=== PATIENT | female | born 1945 | race Caucasian/White ===

== ENCOUNTER → 2016-09-27 | Outpatient (CLI) | payer MEDICARE ==
--- NOTE | 2016-09-27 08:33 | MR ---
EXAMINATION TYPE: MR knee RT wo con DATE OF EXAM: 09/27/2016 8:09 AM COMPARISON: Outside right knee x-ray September 08, 2016. HISTORY: Right knee pain per order. Pain since twisting injury August 11, 2016 per patient. TECHNIQUE: Multiplanar, multisequence images of the knee is performed without IV contrast. FINDINGS: MEDIAL MENISCUS: Anterior horn is intact without tear. Posterior horn is emaciated with abnormal sign al extending to articular surface seen best sagittal image 9, findings are consistent with complex fu ll-thickness tear. LATERAL MENISCUS: Anterior and posterior horns are intact without tear. CRUCIATE LIGAMENTS: The anterior and posterior cruciate ligaments are intact and unremarkable. COLLATERAL LIGAMENTS: The medial collateral ligament and lateral collateral ligament complex are inta ct. Some mild fluid signal surrounds medial collateral ligament. EXTENSOR MECHANISM: Visualized quadriceps and patellar tendons are intact. EFFUSION: There is moderate to large size suprapatellar joint effusion. POPLITEAL CYST: There is moderate to large size popliteal/ireland cyst measuring 8.2 cm on sagittal cassidy ge 7. TRICOMPARTMENT SPACES: There is mild to moderate tricompartment joint space loss and spurring. CARTILAGE: There is chondromalacia patella with near full-thickness cartilaginous loss over the poste rior patellar pole identified. There is cartilaginous thinning also on the lateral and medial tibiofe moral compartments with some fissuring present. BONE MARROW SIGNAL: There is heterogeneous increased T2 signal involving the medial tibial plateau wi thout distinct linear T1 hypointense signal to suggest radio occult fracture. OTHER: No additional significant abnormality is appreciated. IMPRESSION: 1. Complex full-thickness tear posterior horn of medial meniscus. 2. Significant osseous contusion/bone marrow edema involving the medial tibial meta-epiphysis up to t he articular surface. 3. Mild MCL sprain. 4. Moderate to large suprapatellar joint effusion. 5. Moderate to large size popliteal cyst. 6. Background of moderate osteoarthritic changes with full-thickness chondromalacia patella and near full-thickness tibial femoral cartilaginous loss.
== END | disposition home or self-care (01) ==
LOC: RADMRIMAIN 07:33
PROVIDERS: ATTEND Orthopaedic Surgery
DX: S83.231A Complex tear of medial meniscus, current injury, right knee, initial encounter (principal); S83.411A Sprain of medial collateral ligament of right knee, initial encounter; M71.21 Synovial cyst of popliteal space [Baker], right knee; M17.11 Unilateral primary osteoarthritis, right knee; M22.41 Chondromalacia patellae, right knee

== ENCOUNTER 2016-10-31 07:23 | Day surgery (SDC) | payer MEDICARE ==
[2016-10-29 13:12] VITALS: BMI 31.1
--- NOTE | 2016-10-30 15:25 | HP ---
DATE OF ADMISSION: 10/31/2016 Ilene Palma is a 71-year-old patient seen with progressive right knee pain. After having treatment options discussed, she elected to proceed with right knee arthroscopy. Consent was obtained. Medical clearance provided by Dr. Lucia. Past medical history is hypertension, osteoarthritis. PAST SURGICAL HISTORY: Appendectomy, section, knee arthroscopy, breast biopsy, tonsillectomy. DAILY MEDICATIONS: 1. Aspirin. 2. Lisinopril. 3. Aleve. 4. Tramadol. ALLERGIES: PENICILLIN and SULFA. SOCIAL HISTORY: Patient denies current tobacco use. Physical evaluation of the right knee: Range of motion is 0 to 120 degrees. There is tenderness along the medial joint line. Positive medial Nancie's. Ligaments are stable. Hip rotation is without pain. Distal neurovascular exam is intact. Radiographs of the right knee revealed moderate medial compartment osteoarthritis. MRI of the right knee revealed medial meniscal tear as well as a joint effusion. IMPRESSION: Internal derangement of right knee with medial meniscal tear. PLAN: Right knee arthroscopy with partial meniscectomy and debridement.
[~2016-10-31 07:23] MED LIST: DEXAMETHASONE SOD PHOSPHATE 10 MG/ML 1 ML VIAL IV ONE; HYDROmorphone 1 MG/ML 1 ML SYRINGE IVP PRN; LACTATED RINGERS 1,000 ML IV SCH; LIDOCAINE 1% 20 ML VIAL (10MG/ML) FOR IV START INTRADERMA PRN; MIDAZOLAM 2 MG/2 ML VIAL IV PRN; ONDANSETRON 4 MG/2 ML VIAL IVP ONE; SCOPOLAMINE 1.5MG/72HR PATCH TRANSDERM ONE; ceFAZolin 2 GM in SODIUM CHLORIDE 0.9% 100 ML IVPB ONE
[2016-10-31 07:52] VITALS: RESP 16
[2016-10-31] MEDS ORDERED: LIDOCAINE 1% 20 ML VIAL (10MG/ML) FOR IV START INTRADERMA ONE (07:52)
[2016-10-31] MEDS ORDERED: PROPOFOL 10 MG/ML 20 ML VIAL IV ONE (08:36)
[2016-10-31] MEDS ORDERED: BUPIVACAIN-EPI 0.25%-1:200,000 30 ML VIAL INTRAARTIC ONE (08:36)
[2016-10-31] MEDS ORDERED: LIDOCAINE 1% INJ 10MG/ML (20 ML MDV) ONE (08:36)
[2016-10-31] MEDS ORDERED: MIDAZOLAM 2 MG/2 ML VIAL ONE (08:36)
[2016-10-31] MEDS ORDERED: fentaNYL (PF) 50 MCG/ML 2 ML AMP ONE (08:36)
[2016-10-31] MEDS ORDERED: SUCCINYLCHOLINE CHLORIDE 100 MG/5 ML SYR IV ONE (08:36)
[2016-10-31] MEDS ORDERED: ePHEDrine 50 MG/ML 1 ML AMP ONE (08:36)
[2016-10-31 09:37] VITALS: TEMP 96.8
--- NOTE | 2016-10-31 09:38 | P.OP ---
Date of Procedure: 10/31/16 Preoperative Diagnosis: Internal derangement right knee Postoperative Diagnosis: 1. Tear medial and lateral meniscus right knee 2. Grade 3/4 chondromalacia medial femoral condyle right knee 3. Grade 3/4 chondromalacia lateral femoral condyle right knee 4. Reactive synovitis medial and suprapatellar compartments right knee Procedure(s) Performed: 1. Arthroscopic partial medial and lateral meniscectomy right knee 2. Arthroscopic chondroplasty medial femoral condyle right knee 3. Arthroscopic chondroplasty lateral femoral condyle right knee 4. Arthroscopic partial synovectomy medial and suprapatellar compartments right knee Anesthesia: ADAMA, local Surgeon: [facility] Estimated Blood Loss (ml): 10 Pathology: none sent Condition: stable Disposition: PACU Indications for Procedure: 71-year-old patient seen with progressive right knee pain. After having treatment options discussed, she elected to proceed with right knee arthroscopy. Operative Findings: See description of procedure Description of Procedure: Patient was taken to the operative suite. Patient underwent a general anesthetic by the department of anesthesia. Patient was given preoperative antibiotics. The right lower extremity was placed in a well-padded arthroscopic leg ferrer. The right leg was prepped and draped in the normal sterile orthopedic fashion. A lateral parapatellar and suprapatellar incision was made. Trochars were inserted. Arthroscopy was initiated. Suprapatellar pouch revealed thick reactive synovitis. The patellofemoral joint appeared to articulate congruently. There was grade 2 chondromalacia changes of the patellofemoral joint with no osteochondral tears present. The scope was guided into the medial gutter. No loose bodies or plica was identified. The scope was then guided into the medial compartment. A medial parapatellar incision was made. Trocar inserted followed by probe. There was a complex tear involving the posterior horn medial meniscus. Grade 3-4 chondromalacia changes medial femoral condyle with areas of exposed bone. Reactive synovitis anteriorly. Grade 3 chondromalacia of the tibial plateau. No loose bodies. A partial medial meniscectomy was performed down to stable tissue. I performed a chondroplasty of the medial femoral condyle and partial synovectomy. The residual meniscus was probed and found to be stable. Scope and probe were then guided into the intercondylar notch. Cruciates were identified, probed and found to be stable. The scope and probe were then guided into lateral compartment. Radial tears involving the posterior horn and midbody lateral meniscus. There was a weight-bearing central area of grade 3/4 chondromalacia of the lateral femoral condyle with osteochondral tears. No loose bodies. A partial lateral meniscectomy was performed on a stable tissue. I performed a chondroplasty lateral femoral condyle. The residual meniscus and osteochondral surface were found to be stable. The scope was in guided back into the suprapatellar compartment. A motorized shaver was introduced into the suprapatellar compartment debriding out piecemeal fragments of meniscus, I then performed a partial synovectomy. Shaver was removed. I took one more look on the entire knee, no residual debris. Instruments were now removed from the joint. The joint was infiltrated with .25% Marcaine. Steri-Strips were applied to the portal sites. Sterile dressings were applied. The patient was placed into a ILIANA hose. No tourniquet was utilized. The patient was awakened, transferred to a bed and taken to recovery stable satisfactory condition.
[2016-10-31 10:47] VITALS: BP 133/79; PULSE 103
== END 2016-10-31 11:15 | disposition home or self-care (01) ==
LOC: OR 07:23
PROVIDERS: ATTEND Orthopaedic Surgery
DX: S83.241A Other tear of medial meniscus, current injury, right knee, initial encounter (principal); S83.281A Other tear of lateral meniscus, current injury, right knee, initial encounter; X58.XXXA Exposure to other specified factors, initial encounter; M94.261 Chondromalacia, right knee; M65.861 Other synovitis and tenosynovitis, right lower leg; M19.90 Unspecified osteoarthritis, unspecified site; I10 Essential (primary) hypertension; Z87.891 Personal history of nicotine dependence; F41.9 Anxiety disorder, unspecified; Z79.82 Long term (current) use of aspirin; Z79.1 Long term (current) use of non-steroidal anti-inflammatories (NSAID); Z79.891 Long term (current) use of opiate analgesic; Z79.899 Other long term (current) drug therapy; Z88.0 Allergy status to penicillin; Z88.2 Allergy status to sulfonamides
CPT/HCPCS: 29880; J2250; J1100; J0690; J2405; J2001; J3010; J0330; J2704

== ENCOUNTER → 2017-04-17 | Outpatient (CLI) | payer MEDICARE ==
--- NOTE | 2017-04-17 13:24 | MM ---
Reason for exam: screening (asymptomatic). Last mammogram was performed 1 year ago. History: Patient is postmenopausal. Benign excisional biopsy of the right breast. Took estrogen for 6 years beginning at age 50. Physical Findings: A clinical breast exam by your physician is recommended on an annual basis and results should be correlated with mammographic findings. MG 3D Screening Mammo W/Cad Bilateral CC and MLO view(s) were taken. Prior study comparison: April 11, 2016, bilateral MG 3d screening mammo w/cad. June 03, 2012, bilateral digital screening mammo w/CAD. There are scattered fibroglandular densities. Finding: There are typically benign vascular calcifications in both breasts. There is no discrete abnormality. ASSESSMENT: Benign, BI-RAD 2 RECOMMENDATION: Routine screening mammogram of both breasts in 1 year.
== END | disposition home or self-care (01) ==
LOC: RADMAMWWP 07:50
PROVIDERS: ATTEND Family Medicine
DX: Z12.31 Encounter for screening mammogram for malignant neoplasm of breast (principal)
CPT/HCPCS: 77063; G0202

== ENCOUNTER → 2017-09-15 | Outpatient (CLI) | payer MEDICARE ==
--- NOTE | 2017-09-15 15:22 | XR ---
EXAMINATION TYPE: XR abdomen 2V DATE OF EXAM: 09/15/2017 3:14 PM CLINICAL HISTORY: Lower abdominal pain and constipation for 2 weeks TECHNIQUE: Upright and supine image of the abdomen is obtained. COMPARISON: None. FINDINGS: Scattered gas is seen in non-distended small bowel loops. Gas and fecal material is seen in non-distended colon. There is no visceromegaly, pneumoperitoneum, or abnormal calcification apprecia jono. The lung bases are clear and the osseous structures are intact. S-shaped rotatory scoliotic curv ature of the thoracolumbar spine and moderate multilevel degenerative changes are seen. Moderate dege nerative changes of the left femoral acetabular joints are also noted. IMPRESSION: Nonobstructive bowel gas pattern.
== END | disposition home or self-care (01) ==
LOC: RADXRYALE 15:02
PROVIDERS: ATTEND Physician Assistant Medical
DX: R10.817 Generalized abdominal tenderness (principal)
CPT/HCPCS: 74019

== ENCOUNTER 2019-02-04 12:35 | Observation (INO) | payer MEDICARE ==
[2019-02-04] MEDS ORDERED: NITROGLYCERIN SL TABS 0.4 MG TAB SUBLINGUAL STA ×3 (13:34)
--- NOTE | 2019-02-04 13:39 | ED ---
General Adult HPI - General Chief complaint: Chest Pain Stated complaint: chest pain Time Seen by Provider: 02/04/19 13:11 Source: patient, RN notes reviewed Mode of arrival: wheelchair Limitations: no limitations - History of Present Illness Initial comments: Patient is a pleasant 73-year-old female presenting to the emergency department with complaints of upper back discomfort. Onset of symptoms was around 8 AM. Patient was arty awake. Patient saw her doctor today and was advised to come to emergency department for cardiac workup. Discomfort is near resolved at this point. Discomfort has been waxing and waning. At times discomfort is moderate, 6/10. No associated dyspnea, nausea, or diaphoresis. No discomfort in the chest. Discomfort starts in the upper back and radiates to both arms. No weakness. Discomfort is not positional. Patient states her blood pressure was high earlier and was given Catapres at her physician's office. Patient also adds that 2 days ago she had an episode of expressive aphasia the last around 20 minutes and then resolved. No other areas of weakness or confusion. Patient states she could just did not think of words or state them. - Related Data Home Medications Medication Instructions Recorded Confirmed Aspirin 81 mg PO DAILY 10/29/16 02/04/19 Calcium Carbonate/Vitamin D3 2,000 mg PO DAILY 10/29/16 02/04/19 [Calcium 500-Vit D3 600 Tablet] Niacin 1,000 mg PO DAILY 10/29/16 02/04/19 Red Yeast Rice 600 mg PO DAILY 10/29/16 02/04/19 Lisinopril 20 mg PO DAILY 02/04/19 02/04/19 Sucralfate [Carafate] 1 gm PO AC-TID 02/04/19 02/04/19 traMADol HCL [Ultram] 50 mg PO DAILY PRN 02/04/19 02/04/19 Allergies Allergy/AdvReac Type Severity Reaction Status Date / Time Penicillins Allergy Rash/Hives Verified 02/04/19 13:22 Review of Systems ROS Statement: Those systems with pertinent positive or pertinent negative responses have been documented in the HPI. ROS Other: All systems not noted in ROS Statement are negative. Constitutional: Denies: fever Eyes: Denies: eye pain ENT: Denies: ear pain Respiratory: Denies: cough Cardiovascular: Reports: as per HPI. Denies: chest pain Endocrine: Reports: fatigue Gastrointestinal: Denies: abdominal pain, nausea, vomiting Genitourinary: Denies: dysuria Musculoskeletal: Reports: as per HPI Skin: Denies: rash Neurological: Reports: as per HPI. Denies: weakness Past Medical History Past Medical History: Hyperlipidemia, Hypertension, Osteoarthritis (OA) Additional Past Medical History / Comment(s): rt torn meniscus History of Any Multi-Drug Resistant Organisms: None Reported Past Surgical History: Appendectomy, Section Additional Past Surgical History / Comment(s): c sect x2,cyst removed from breast,rt hip replaced,pilondal cyst rem.,arth rt knee Past Anesthesia/Blood Transfusion Reactions: No Reported Reaction Past Psychological History: No Psychological Hx Reported Smoking Status: Former smoker - Past Family History Mother Additional Family Medical History / Comment(s): heart prob Father Additional Family Medical History / Comment(s): heart prob Sister(s) Family Medical History: Cancer General Exam Limitations: no limitations General appearance: alert, in no apparent distress Head exam: Present: atraumatic, normocephalic Eye exam: Present: normal appearance, PERRL, EOMI. Absent: nystagmus ENT exam: Present: normal oropharynx Neck exam: Present: normal inspection. Absent: tenderness Respiratory exam: Present: normal lung sounds bilaterally. Absent: chest wall tenderness Cardiovascular Exam: Present: normal rhythm, tachycardia Expanded Peripheral pulses: 2+: Radial (R), Radial (L), Dorsalis Pedis (R), Dorsalis P merari (L) GI/Abdominal exam: Present: soft. Absent: tenderness Extremities exam: Present: normal inspection. Absent: pedal edema, calf tenderness Back exam: Present: normal inspection. Absent: tenderness Neurological exam: Present: alert Psychiatric exam: Present: normal affect, normal mood Skin exam: Present: normal color Course Vital Signs 02/04/19 02/04/19 02/04/19 13:07 14:30 15:30 Temperature 99.2 F Pulse Rate 117 H 110 H 104 H Respiratory 18 18 18 Rate Blood Pressure 146/86 139/88 132/82 O2 Sat by Pulse 95 97 95 Oximetry 02/04/19 16:00 Temperature 99.0 F Pulse Rate 114 H Respiratory 20 Rate Blood Pressure O2 Sat by Pulse 97 Oximetry EKG Findings - EKG Comments: EKG Findings:: Sinus tachycardia 114. OH 158. QRS 78. QT 328. QTC 452. Inferior Q waves. Nonspecific T waves. Medical Decision Making - Medical Decision Making Patient reevaluated. Patient and family updated. Case was discussed in detail with Dr. Post, who will admit for Dr. Mir Vences. - Lab Data Result diagrams: 02/04/19 13:30 02/04/19 13:30 Lab Results 02/04/19 02/04/19 02/04/19 Range/Units 13:30 13:30 13:30 WBC 7.8 (3.8-10.6) k/uL RBC 4.67 (3.80-5.40) m/uL Hgb 13.5 (11.4-16.0) gm/dL Hct 42.3 (34.0-46.0) % MCV 90.6 (80.0-100.0) fL MCH 29.0 (25.0-35.0) pg MCHC 32.0 (31.0-37.0) g/dL RDW 14.4 (11.5-15.5) % Plt Count 298 (150-450) k/uL Neutrophils % 75 % Lymphocytes % 19 % Monocytes % 4 % Eosinophils % 1 % Basophils % 0 % Neutrophils # 5.8 (1.3-7.7) k/uL Lymphocytes # 1.5 (1.0-4.8) k/uL Monocytes # 0.3 (0-1.0) k/uL Eosinophils # 0.1 (0-0.7) k/uL Basophils # 0.0 (0-0.2) k/uL PT 9.9 (9.0-12.0) sec INR 0.9 (<1.2) APTT 22.0 (22.0-30.0) sec D-Dimer 0.90 H (<0.60) mg/L FEU Sodium 137 (137-145) mmol/L Potassium 4.5 (3.5-5.1) mmol/L Chloride 102 (98-107) mmol/L Carbon Dioxide 25 (22-30) mmol/L Anion Gap 10 mmol/L BUN 18 H (7-17) mg/dL Creatinine 1.06 H (0.52-1.04) mg/dL Est GFR (CKD-EPI)AfAm 60 (>60 ml/min/1.73 sqM) Est GFR (CKD-EPI)NonAf 52 (>60 ml/min/1.73 sqM) Glucose 117 H (74-99) mg/dL Calcium 10.1 (8.4-10.2) mg/dL Magnesium 2.0 (1.6-2.3) mg/dL Total Bilirubin 0.6 (0.2-1.3) mg/dL AST 26 (14-36) U/L ALT 22 (9-52) U/L Alkaline Phosphatase 73 (38-126) U/L Creatine Kinase 54 (30-135) U/L Troponin I (0.000-0.034) ng/mL Total Protein 7.3 (6.3-8.2) g/dL Albumin 4.6 (3.5-5.0) g/dL 02/04/19 Range/Units 13:30 WBC (3.8-10.6) k/uL RBC (3.80-5.40) m/uL Hgb (11.4-16.0) gm/dL Hct (34.0-46.0) % MCV (80.0-100.0) fL MCH (25.0-35.0) pg MCHC (31.0-37.0) g/dL RDW (11.5-15.5) % Plt Count (150-450) k/uL Neutrophils % % Lymphocytes % % Monocytes % % Eosinophils % % Basophils % % Neutrophils # (1.3-7.7) k/uL Lymphocytes # (1.0-4.8) k/uL Monocytes # (0-1.0) k/uL Eosinophils # (0-0.7) k/uL Basophils # (0-0.2) k/uL PT (9.0-12.0) sec INR (<1.2) APTT (22.0-30.0) sec D-Dimer (<0.60) mg/L FEU Sodium (137-145) mmol/L Potassium (3.5-5.1) mmol/L Chloride (98-107) mmol/L Carbon Dioxide (22-30) mmol/L Anion Gap mmol/L BUN (7-17) mg/dL Creatinine (0.52-1.04) mg/dL Est GFR (CKD-EPI)AfAm (>60 ml/min/1.73 sqM) Est GFR (CKD-EPI)NonAf (>60 ml/min/1.73 sqM) Glucose (74-99) mg/dL Calcium (8.4-10.2) mg/dL Magnesium (1.6-2.3) mg/dL Total Bilirubin (0.2-1.3) mg/dL AST (14-36) U/L ALT (9-52) U/L Alkaline Phosphatase (38-126) U/L Creatine Kinase (30-135) U/L Troponin I <0.012 (0.000-0.034) ng/mL Total Protein (6.3-8.2) g/dL Albumin (3.5-5.0) g/dL - Radiology Data Radiology results: report reviewed (Computed tomography scan of the brain shows no acute process. Atrophy and chronic small vessel ischemic changes are noted. CT angios chest shows no pulmonary embolism. Atelectasis and scarring. Cannot rule out developing infiltrate, recommend follow-up CT in 6 months.), image reviewed (Chest x-ray does show somewhat prominent mediastinum.) Disposition Clinical Impression: Upper back pain, TIA (transient ischemic attack) Disposition: ADMITTED IP TO THIS HOSP Is patient prescribed a controlled substance at d/c from ED?: No Referrals: Addison Lucia DO [Primary Care Provider] - 1-2 days Decision Time: 16:48
[2019-02-04 14:11] LABS: Albumin 4.6 g/dL (3.5-5.0); Calcium 10.1 mg/dL (8.4-10.2); Potassium 4.5 mmol/L (3.5-5.1); Total Bilirubin 0.6 mg/dL (0.2-1.3); Total Protein 7.3 g/dL (6.3-8.2)
--- NOTE | 2019-02-04 14:13 | CT ---
EXAMINATION TYPE: CT brain wo con DATE OF EXAM: 02/04/2019 COMPARISON: None HISTORY: Dysphasia CT DLP: 1056.4 mGycm Automated exposure control for dose reduction was used. TECHNIQUE: CT scan of the head is performed without contrast. FINDINGS: There is no acute intracranial hemorrhage or midline shift identified. There is diffuse v entricular and sulcal prominence consistent with diffuse age-related cerebral atrophy. Extensive ath erosclerosis of the intracranial vasculature. No extra-axial fluid collection. There is low-attenuati on in the periventricular white matter consistent with chronic small vessel ischemic change. The dion bes are intact and the visualized sinuses are clear. IMPRESSION: No acute intracranial hemorrhage or midline shift. There is diffuse age-related cerebra l atrophy and chronic small vessel ischemic change noted.
[2019-02-04 14:16] LABS: Basophils % (A) 0 %; Eosinophils # (A) 0.1 k/uL (0-0.7); Eosinophils % (A) 1 %; HCT 42.3 % (34.0-46.0); HGB 13.5 gm/dL (11.4-16.0); Lymphocytes # (A) 1.5 k/uL (1.0-4.8); Lymphocytes % (A) 19 %; MCV 90.6 fL (80.0-100.0); Mean Platelet Volume 7.6; Monocytes # (A) 0.3 k/uL (0-1.0); Monocytes % (A) 4 %; Neutrophils # (A) 5.8 k/uL (1.3-7.7); Neutrophils % (A) 75 %; Platelet Count 298 k/uL (150-450); RBC 4.67 m/uL (3.80-5.40); RDW 14.4 % (11.5-15.5); WBC 7.8 k/uL (3.8-10.6)
--- NOTE | 2019-02-04 14:17 | XR ---
EXAMINATION TYPE: XR chest 2V DATE OF EXAM: 02/04/2019 COMPARISON: 11/09/2013 INDICATION: Chest pain fever TECHNIQUE: Frontal and lateral views of the chest are obtained. FINDINGS: The heart size is normal. Mediastinum however appears somewhat more prominent than the prior study. Underlying hilar mass could be considered. Additional evaluation can be performed CT exam. The pulmonary vasculature is normal. Minimal scarring may be in the right lung base. Suspicious infiltrate is not evident.. IMPRESSION: 1. Scarring right lung base. 2. No acute pulmonary process. 3. Mediastinum appears more prominent on the current examination. Recommend closer evaluation with CT .
[2019-02-04 14:22] LABS: INR 0.9 (<1.2); Prothrombin Time 9.9 sec (9.0-12.0)
[2019-02-04 14:31] LABS: D-Dimer 0.9 mg/L FEU (<0.60)
--- NOTE | 2019-02-04 15:40 | CT ---
EXAMINATION TYPE: CT angio chest DATE OF EXAM: 02/04/2019 COMPARISON: NONE HISTORY: Clinical concern for pulmonary embolus. Shortness of breath. CT DLP: 337.3 mGycm. Automated Exposure Control for Dose Reduction was Utilized. CONTRAST: CTA scan of the thorax is performed with IV Contrast, patient injected with 80 mL of Isovue 370, pulm onary embolism protocol. MIP Images are created on CT scanner and reviewed. FINDINGS: LUNGS: Centrilobular emphysematous changes of the lungs are mild and most pronounced at the lung apic es. Bibasilar pleural-parenchymal scarring that is multifocal and atelectasis is seen. There is an ad ditional consolidation near the medial right lung base on series 406 image 108 there bronchograms als o favored to represent atelectasis There is no pleural effusion or pneumothorax seen. The tracheobro nchial tree is patent. MEDIASTINUM: There is satisfactory enhancement of the pulmonary artery and its branches, there is no CT evidence for pulmonary embolism. There are no greater than 1 cm hilar or mediastinal lymph nodes. Heart is mildly enlarged without pericardial effusion. Within the aortic arch there appears to be a normal variant ductus bump. This is seen at a typical location of the anteromedial aortic arch on axi al image 45 and 46 and sagittal image 25. There are moderate to severe coronary artery calcifications . OTHER: Moderate multilevel degenerative change of the spine is seen. IMPRESSION: 1. No evidence of pulmonary embolus. 2. Mild emphysematous change and multifocal atelectasis as well as multifocal pleural scarring. Small right area of focal consolidation is also favored to represent atelectasis although developing pneum onia could be considered. Follow-up CT in 6 months to ensure resolution.
[2019-02-04] MEDS ORDERED: traMADol 50 MG TAB PO PRN (16:24)
[2019-02-04] MEDS ORDERED: KETOROLAC 30 MG/ML 1 ML VIAL IVP PRN (16:25)
[2019-02-04] MEDS ORDERED: SODIUM CHLORIDE 0.9% 1,000 ML IV SCH (16:30)
[2019-02-04] MEDS ORDERED: NITROGLYCERIN SL TABS 0.4 MG TAB SUBLINGUAL PRN (16:48)
[2019-02-04] MEDS ORDERED: ASPIRIN 81 MG PO STA (16:48)
--- NOTE | 2019-02-04 17:29 | P.HPIM ---
History of Present Illness 73-year-old pleasant female came in with compensative for back pain in the upper back area is below the neck radiating to both shoulders denied any shortness of breath on exertion nonpleuritic not associated with food moderate severity now improved. No associated diaphoresis or shortness of breath. Patient's EKG did not show any acute ST-T wave changes patient has sinus tachycardia which is chronic. Patient apparently had an episode of forgetfulness couple days ago because of which patient had a CT of the head which was negative and neurology was consulted. Patient blood pressure was high when she was seen in the [facility] of [facility] because of which patient was given Catapres and was sent to the ER. Patient's troponins are negative. Patient had Expressive aphasia which lasted for 20 minutes couple days ago without any other significant neurological deficits. She denied any history of smoking. Patient denied any chest pain Review of Systems REVIEW OF SYSTEMS: CONSTITUTIONAL: No fever, no malaise, no fatigue. HEENT: No recent visual problems or hearing problems. Denied any sore throat. CARDIOVASCULAR: No chest pain, orthopnea, PND, no palpitations, no syncope. PULMONARY: No shortness of breath, no cough, no hemoptysis. GASTROINTESTINAL: No diarrhea, no nausea, no vomiting, no abdominal pain. NEUROLOGICAL: No headaches, no weakness, no numbness. HEMATOLOGICAL: Denies any bleeding or petechiae. GENITOURINARY: Denies any burning micturition, frequency, or urgency. MUSCULOSKELETAL/RHEUMATOLOGICAL: As mentioned in HPI ENDOCRINE: Denies any polyuria or polydipsia. The rest of the 14-point review of systems is negative. Past Medical History Past Medical History: Hyperlipidemia, Hypertension, Osteoarthritis (OA) Additional Past Medical History / Comment(s): rt torn meniscus History of Any Multi-Drug Resistant Organisms: None Reported Past Surgical History: Appendectomy, Section Additional Past Surgical History / Comment(s): c sect x2,cyst removed from breast,rt hip replaced,pilondal cyst rem.,arth rt knee Past Anesthesia/Blood Transfusion Reactions: No Reported Reaction Past Psychological History: No Psychological Hx Reported Smoking Status: Former smoker - Past Family History Mother Additional Family Medical History / Comment(s): heart prob Father Additional Family Medical History / Comment(s): heart prob Sister(s) Family Medical History: Cancer Medications and Allergies Home Medications Medication Instructions Recorded Confirmed Type Aspirin 81 mg PO DAILY 10/29/16 02/04/19 History Calcium Carbonate/Vitamin D3 2,000 mg PO DAILY 10/29/16 02/04/19 History [Calcium 500-Vit D3 600 Tablet] Niacin 1,000 mg PO DAILY 10/29/16 02/04/19 History Red Yeast Rice 600 mg PO DAILY 10/29/16 02/04/19 History Lisinopril 20 mg PO DAILY 02/04/19 02/04/19 History Sucralfate [Carafate] 1 gm PO AC-TID 02/04/19 02/04/19 History traMADol HCL [Ultram] 50 mg PO DAILY PRN 02/04/19 02/04/19 History Allergies Allergy/AdvReac Type Severity Reaction Status Date / Time Penicillins Allergy Rash/Hives Verified 02/04/19 13:22 Physical Exam Vitals: Vital Signs Temp Pulse Resp BP Pulse Ox 02/04/19 16:00 99.0 F 114 H 20 97 02/04/19 15:30 104 H 18 132/82 95 02/04/19 14:30 110 H 18 139/88 97 02/04/19 13:07 99.2 F 117 H 18 146/86 95 Intake and Output 02/04/19 02/04/19 02/04/19 06:59 14:59 22:59 Other: Weight 87.997 kg PHYSICAL EXAMINATION: GENERAL: The patient is alert and oriented x3, not in any acute distress. Well developed, well nourished. HEENT: Pupils are round and equally reacting to light. EOMI. No scleral icterus. No conjunctival pallor. Normocephalic, atraumatic. No pharyngeal erythema. No thyromegaly. CARDIOVASCULAR: S1 and S2 present. No murmurs, rubs, or gallops. Sinus tachycardia PULMONARY: Chest is clear to auscultation, no wheezing or crackles. ABDOMEN: Soft, nontender, nondistended, normoactive bowel sounds. No palpable organomegaly. MUSCULOSKELETAL: No joint swelling or deformity. EXTREMITIES: No cyanosis, clubbing, or pedal edema. NEUROLOGICAL: Gross neurological examination did not reveal any focal deficits. SKIN: No rashes. Results CBC & Chem 7: 02/04/19 13:30 02/04/19 13:30 Labs: Abnormal Lab Results - Last 24 Hours (Table) 02/04/19 02/04/19 Range/Units 13:30 13:30 D-Dimer 0.90 H (<0.60) mg/L FEU BUN 18 H (7-17) mg/dL Creatinine 1.06 H (0.52-1.04) mg/dL Glucose 117 H (74-99) mg/dL Assessment and Plan Plan: Chest pain: Patient appears to [place] skeletal chest pain we'll rule out acute coronary syndromes, cardiology will be consulted early the decision of stress test to cardiology. -Transient episode of expressive aphasia 2 days ago but the CAT scan did not show any significant abnormality developmental my suspicion is low for a stroke may have had a TIA neurology will evaluate the patient. -Sinus tachycardia CT angios the chest did not show any PE, we'll also obtain TSH. Patient was started on metoprolol -Mild acute renal failure patient was started on IV fluids and repeat basic metabolic profile tomorrow DVT prophylaxis: Early ambulation
--- NOTE | 2019-02-04 19:11 | US ---
EXAMINATION TYPE: US carotid duplex BILAT DATE OF EXAM: 02/04/2019 COMPARISON: NONE CLINICAL HISTORY: Stenosis. Neck and pain down arm. EXAM MEASUREMENTS: RIGHT: Peak Systolic Velocity (PSV) cm/sec ----- Right CCA: 58.0 ----- Right ICA: 47.8 ----- Right ECA: 91.5 ICA/CCA ratio: 0.8 RIGHT: End Diastole cm/sec ----- Right CCA: 17.3 ----- Right ICA: 17.3 ----- Right ECA: 8.6 LEFT: Peak Systolic Velocity (PSV) cm/sec ----- Left CCA: 62.6 ----- Left ICA: 72.5 ----- Left ECA: 53.8 ICA/CCA ratio: 1.2 LEFT: End Diastole cm/sec ----- Left CCA: 20.8 ----- Left ICA: 21.9 ----- Left ECA: 4.3 VERTEBRALS (direction of flow): Right Vertebral: Antegrade Left Vertebral: Antegrade Rhythm: Normal No significant stenosis seen IMPRESSION: There is antegrade flow in the vertebral arteries. The images and measurements suggest l ess than 25% stenosis in both internal carotid arteries. Criteria for Assigning % of Stenosis / Diameter reduction (Estimation based on the indirect measurements of the internal carotid artery velocities (ICA PSV). 1. Normal (no stenosis)=ICA PSV < 125 cm/s: ratio < 2.0: ICA EDV<40 cm/s. 2. Less than 50% stenosis=ICA PSV < 125 cm/s: ratio < 2.0: ICA EDV<40 cm/s. 3. 50 to 69% stenosis=ICA PSV of 125 to 230 cm/s: ration 2.0 ? 4.0: ICA EDV 40-100 cm/s. 4. Greater than 70% stenosis to near occlusion= ICA PSV > 230 cm/s: ratio > 4.0: ICA EDV > 100 cm/s. 5. Near occlusion= ICA PSV velocities may be low or undetectable: variable ratio and ICA EDV. 6. Total occlusion=unable to detect flow.
[2019-02-04] MEDS: SODIUM CHLORIDE 0.9% 1,000 ML IV SCH (19:29)
[2019-02-04] MEDS: SUCRALFATE 1 GM TAB PO SCH (20:05)
[2019-02-04] MEDS: NITROGLYCERIN OINT 1 INCH/GM PACKET TOPICAL SCH (20:09)
[2019-02-04] MEDS: METOPROLOL TARTRATE 25 MG TAB PO SCH (20:10)
[2019-02-04] MEDS: FAMOTIDINE 20 MG TAB PO SCH (20:10)
[2019-02-05] MEDS: NITROGLYCERIN OINT 1 INCH/GM PACKET TOPICAL SCH ×3 (00:57→11:13)
[2019-02-05] MEDS: SODIUM CHLORIDE 0.9% 1,000 ML IV SCH ×2 (05:32→12:54)
[2019-02-05] MEDS: SUCRALFATE 1 GM TAB PO SCH ×2 (05:52→12:54)
[2019-02-05 06:32] LABS: Calcium 9.7 mg/dL (8.4-10.2); Potassium 4.3 mmol/L (3.5-5.1)
[2019-02-05 07:37] VITALS: RESP 18
[2019-02-05] MEDS: FAMOTIDINE 20 MG TAB PO SCH (07:50)
[2019-02-05] MEDS: METOPROLOL TARTRATE 25 MG TAB PO SCH (07:50)
[2019-02-05] MEDS ORDERED: ASPIRIN 81 MG PO SCH (09:00)
[2019-02-05] MEDS ORDERED: ASPIRIN 325 MG TAB PO SCH (09:00)
[2019-02-05] MEDS ORDERED: LISINOPRIL 20 MG TAB PO SCH (09:00)
[2019-02-05] MEDS: NIACIN TR 500 MG CAPLET PO SCH ×2 (10:27→10:29)
[2019-02-05 11:15] VITALS: BP 148/75; PULSE 70; TEMP 97.9
--- NOTE | 2019-02-05 13:51 | ECHOF ---
Referral Reason:Thrombus MEASUREMENTS -------- HEIGHT: 154.9 cm WEIGHT: 87.1 kg BP: RVIDd: 3.0 cm (< 3.3) IVSd: 1.1 cm (0.6 - 1.1) LVIDd: 4.2 cm (3.9 - 5.3) LVPWd: 1.3 cm (0.6 - 1.1) IVSs: 1.4 cm LVIDs: 2.3 cm LVPWs: 1.3 cm LAESV Index (A-L): 16.83 ml/m Ao Diam: 3.6 cm (2.0 - 3.7) AV Cusp: 1.6 cm (1.5 - 2.6) LA Diam: 2.7 cm (2.7 - 3.8) MV EXCURSION: 9.718 mm (> 18.000) MV EF SLOPE: 63 mm/s (70 - 150) EPSS: 0.8 cm MV E Alin: 0.78 m/s MV DecT: 233 ms MV A Alin: 1.34 m/s MV E/A Ratio: 0.59 RAP: 15.00 mmHg RVSP: 26.30 mmHg FINDINGS -------- Sinus rhythm. This was a technically good study. The left ventricular size is normal. There is mild concentric left ventricular hypertrophy. Overa ll left ventricular systolic function is normal with, an EF between 55 - 60 %. The right ventricle is normal in size. The left atrial size is normal. The right atrial size is normal. Interatrial and interventricular septum intact. Aortic valve is trileaflet and is mildly thickened. The mitral valve leaflets are mildly thickened. Mild mitral regurgitation is present. No regurgitation noted There is no evidence of pulmonary hypertension. The right ventricular syst olic pressure, as measured by Doppler, is 26.30mmHg. Pulmonic valve appears structurally normal. The aortic root size is normal. The inferior vena cava is mildly dilated. There is no pericardial effusion. CONCLUSIONS -------- 1. Sinus rhythm. 2. This was a technically good study. 3. The left ventricular size is normal. 4. There is mild concentric left ventricular hypertrophy. 5. Overall left ventricular systolic function is normal with, an EF between 55 - 60 %. 6. The right ventricle is normal in size. 7. The left atrial size is normal. 8. The right atrial size is normal. 9. Interatrial and interventricular septum intact. 10. Aortic valve is trileaflet and is mildly thickened. 11. The mitral valve leaflets are mildly thickened. 12. Mild mitral regurgitation is present. 13. No regurgitation noted 14. There is no evidence of pulmonary hypertension. 15. The right ventricular systolic pressure, as measured by Doppler, is 26.30mmHg. 16. Pulmonic valve appears structurally normal. 17. The aortic root size is normal. 18. The inferior vena cava is mildly dilated. 19. There is no pericardial effusion. SETTER MACHINE: Amber Blevins RDCS
--- NOTE | 2019-02-05 14:24 | P.DS ---
Providers Date of admission: 02/04/19 16:58 Attending physician: William Post Consults: 02/04/19 16:48 Consult Physician Urgent Consulting Provider: Leticia Gilliland Consult Reason/Comments: tia Do you want consulting provider notified?: Yes 02/04/19 16:49 Consult Physician Urgent Consulting Provider: Blanco Quinn Consult Reason/Comments: cardiac eval Do you want consulting provider notified?: Yes [facility] Course: Patient is admitted for back pain patient was ruled out for acute coronary syndromes. Patient will be referred to outpatient stress test. Patient wanted to go home. Patient will be discharged on Coreg with TSH within normal limits ruled out pulmonary embolism. Patient had an episode of expressive aphasia which lasted for few minutes couple days before hospitalization because of which patient underwent workup for TIA as well although workup is negative patient will be started on aspirin as well patient's LDL is around 90 to leave the decision of statin. As per the patient and PCP dietary counseling was provided for this. PHYSICAL EXAMINATION: GENERAL: The patient is alert and oriented x3, not in any acute distress. Well developed, well nourished. HEENT: Pupils are round and equally reacting to light. EOMI. No scleral icterus. No conjunctival pallor. Normocephalic, atraumatic. No pharyngeal erythema. No thyromegaly. CARDIOVASCULAR: S1 and S2 present. No murmurs, rubs, or gallops. PULMONARY: Chest is clear to auscultation, no wheezing or crackles. ABDOMEN: Soft, nontender, nondistended, normoactive bowel sounds. No palpable organomegaly. MUSCULOSKELETAL: No joint swelling or deformity. EXTREMITIES: No cyanosis, clubbing, or pedal edema. NEUROLOGICAL: Gross neurological examination did not reveal any focal deficits. SKIN: No rashes. For rest of the chronic medical problems and has physician course please refer to my HPI from yesterday Plan - Discharge Summary Discharge Rx Participant: Yes New Discharge Prescriptions: New Carvedilol [Coreg] 6.25 mg PO BID #60 tablet No Action Red Yeast Rice 600 mg PO DAILY Niacin 1,000 mg PO DAILY Aspirin 81 mg PO DAILY Calcium Carbonate/Vitamin D3 [Calcium 500-Vit D3 600 Tablet] 2,000 mg PO DAILY Sucralfate [Carafate] 1 gm PO AC-TID Lisinopril 20 mg PO DAILY traMADol HCL [Ultram] 50 mg PO DAILY PRN PRN Reason: Pain Discharge Medication List Aspirin 81 mg PO DAILY 10/29/16 [History] Calcium Carbonate/Vitamin D3 [Calcium 500-Vit D3 600 Tablet] 2,000 mg PO DAILY 10/29/16 [History] Niacin 1,000 mg PO DAILY 10/29/16 [History] Red Yeast Rice 600 mg PO DAILY 10/29/16 [History] Lisinopril 20 mg PO DAILY 02/04/19 [History] Sucralfate [Carafate] 1 gm PO AC-TID 02/04/19 [History] traMADol HCL [Ultram] 50 mg PO DAILY PRN 02/04/19 [History] Carvedilol [Coreg] 6.25 mg PO BID #60 tablet 02/05/19 [Rx] Follow up Appointment(s)/Referral(s): Addison Lucia DO [Primary Care Provider] - 02/08/19 10:20 am (with Martha) Bárbara Madden MD [STAFF PHYSICIAN] - 1 Week (call cardiology to make a new patient appointment and stress test ) Patient Instructions/Handouts: Transient Ischemic Attack (DC) Activity/Diet/Wound Care/Special Instructions: follow-up stress test outpatient Discharge Disposition: HOME SELF-CARE
[2019-02-06] MEDS ORDERED: FAMOTIDINE 20 MG TAB PO SCH (09:00)
== END 2019-02-05 14:30 | disposition home or self-care (01) ==
LOC: EC 12:35 → 3SCARD 16:58
PROVIDERS: ADMIT Internal Medicine; ATTEND Internal Medicine
DX: M54.6 Pain in thoracic spine (principal); R47.01 Aphasia; N17.9 Acute kidney failure, unspecified; R07.89 Other chest pain; I10 Essential (primary) hypertension; E78.5 Hyperlipidemia, unspecified; M19.90 Unspecified osteoarthritis, unspecified site; J43.9 Emphysema, unspecified; J98.11 Atelectasis; I34.0 Nonrheumatic mitral (valve) insufficiency; R00.0 Tachycardia, unspecified; I67.82 Cerebral ischemia; G31.9 Degenerative disease of nervous system, unspecified; Z79.82 Long term (current) use of aspirin; Z79.899 Other long term (current) drug therapy; Z79.891 Long term (current) use of opiate analgesic; Z88.0 Allergy status to penicillin; Z96.641 Presence of right artificial hip joint; Z90.49 Acquired absence of other specified parts of digestive tract; Z87.891 Personal history of nicotine dependence; Z82.49 Family history of ischemic heart disease and other diseases of the circulatory system; Z80.9 Family history of malignant neoplasm, unspecified
CPT/HCPCS: 99285; 36415; 93005 ×2; 93306; 92523; 85379; 80061; 80053; 80048; 84443; 82550; 83735; 84484 ×2; 85025; 85610; 85730; 71046; 93880; 70450; 71275; G0378 ×2; Q9967

== ENCOUNTER 2019-04-09 07:32 | Day surgery (SDC) | payer MEDICARE ==
[2019-04-08 09:53] VITALS: BMI 34.0
[~2019-04-09 07:32] MED LIST changes: +ASPIRIN 325 MG TAB PO ONE; -DEXAMETHASONE SOD PHOSPHATE 10 MG/ML 1 ML VIAL IV ONE; -HYDROmorphone 1 MG/ML 1 ML SYRINGE IVP PRN; -LACTATED RINGERS 1,000 ML IV SCH; -LIDOCAINE 1% 20 ML VIAL (10MG/ML) FOR IV START INTRADERMA PRN; -MIDAZOLAM 2 MG/2 ML VIAL IV PRN; -ONDANSETRON 4 MG/2 ML VIAL IVP ONE; -SCOPOLAMINE 1.5MG/72HR PATCH TRANSDERM ONE; +SODIUM CHLORIDE 0.9% 1,000 ML IV SCH; +SODIUM CHLORIDE 0.9% 1,000 ML in EMPTY BAG 1 BAG IV ONE; -ceFAZolin 2 GM in SODIUM CHLORIDE 0.9% 100 ML IVPB ONE
[2019-04-09] MEDS ORDERED: fentaNYL (PF) 50 MCG/ML 2 ML AMP ONE (10:31)
[2019-04-09] MEDS ORDERED: LIDOCAINE 1% INJ 10MG/ML (20 ML MDV) ONE (10:31)
[2019-04-09] MEDS ORDERED: MIDAZOLAM (PF) 2 MG/2 ML VIAL IVP ONE (10:53)
[2019-04-09] MEDS ORDERED: fentaNYL (PF) 50 MCG/ML 2 ML AMP IVP ONE (10:53)
[2019-04-09] MEDS ORDERED: LIDOCAINE 1% INJ 10MG/ML (20 ML MDV) SQ ONE (10:56)
[2019-04-09] MEDS ORDERED: IOPAMIDOL-370 125ML BTL INJ ONE (11:15)
--- NOTE | 2019-04-09 11:37 | LTR ---
DATE OF SERVICE: 04/09/2019 RE: Ilene Palma Dear Addison: I performed cardiac catheterization on Ilene Palma, a detailed catheterization note is enclosed for your records. In brief, the cardiac catheterization reveals chronic occlusion of the mid RCA with a moderate lesion in the circumflex coronary artery. We will treat her with optimal medical therapy and see how her symptoms evolve. If she continues to be symptomatic, we will consider angioplasty of the right coronary artery. Thank you for giving me the privilege to participate in the care of this pleasant lady. Sincerely, MD DOROTA Cortez / DLIEEP: [id number] /
--- NOTE | 2019-04-09 11:37 | CC ---
CARDIAC CATHETERIZATION REPORT INDICATION: Chest pain with abnormal stress test showing ischemia in the inferolateral wall. PROCEDURE NOTE: After obtaining informed consent, left heart catheterization and coronary angiogram were performed via the right femoral artery using standard Kaci catheters. Patient tolerated the procedure well without any obvious immediate complications. A femoral angiogram was performed and decision was made for manual hemostasis. FINDINGS: 1. HEMODYNAMICS: Left ventricular end-diastolic pressure is 10 mm, there is no significant gradient across the aortic valve. 2. LEFT VENTRICULOGRAM: Left ventriculogram has not been performed. 3. ANGIOGRAPHIC DATA. LEFT MAIN CORONARY ARTERY: Left main coronary artery is a normal-sized vessel, but is free of stenosis. Divides into left anterior descending coronary artery and circumflex coronary artery. LAD and its branches are free of significant stenosis. Circumflex coronary artery is a nondominant vessel, shows a moderate area of stenosis in the proximal part which at its worst seems to be a 50% to 60% stenosis. Right coronary artery is a large dominant vessel that is subtotally occluded in its midportion. There are extensive collaterals to the distal RCA from the left system. CONCLUSION: Two-vessel coronary artery disease with chronic occlusion of the mid RCA with left-to- right collaterals. PLAN: I reviewed angiographic data with Dr. Quinn, the on-call credit analyst who suggested that the patient be treated with optimal medical therapy and if she continues to have symptoms that we will consider CT0 of right coronary artery. MMODL / IJN: [id number] /
[2019-04-09] MEDS ORDERED: SODIUM CHLORIDE 0.9% 1,000 ML IV SCH (11:45)
[2019-04-09] MEDS ORDERED: ACETAMINOPHEN TAB 325 MG TAB PO STA (15:28)
[2019-04-09 16:05] VITALS: BP 146/82; PULSE 80; RESP 16; TEMP 99.1
== END 2019-04-09 18:37 | disposition home or self-care (01) ==
LOC: CATHCVL 07:32 → 1SOBS 11:10 → CATHCVL 18:37
PROVIDERS: ATTEND Internal Medicine Cardiovascular Disease
DX: I25.10 Atherosclerotic heart disease of native coronary artery without angina pectoris (principal); I10 Essential (primary) hypertension; Z87.891 Personal history of nicotine dependence; Z86.73 Personal history of transient ischemic attack (TIA), and cerebral infarction without residual deficits; Z82.49 Family history of ischemic heart disease and other diseases of the circulatory system; Z79.82 Long term (current) use of aspirin; Z79.899 Other long term (current) drug therapy; Z88.0 Allergy status to penicillin
CPT/HCPCS: 93458; C1894; C1769; J2001; J3010; Q9967; J2250

== ENCOUNTER → 2019-09-10 | Outpatient (CLI) | payer MEDICARE ==
--- NOTE | 2019-09-13 12:23 | MM ---
Reason for exam: screening (asymptomatic). Last mammogram was performed 2 years and 5 months ago. History: Patient is postmenopausal. Benign excisional biopsy of the right breast. Took estrogen for 6 years beginning at age 50. Physical Findings: A clinical breast exam by your physician is recommended on an annual basis and results should be correlated with mammographic findings. MG 3D Screening Mammo W/Cad Bilateral CC and MLO view(s) were taken. Prior study comparison: April 17, 2017, bilateral MG 3d screening mammo w/cad. April 11, 2016, bilateral MG 3d screening mammo w/cad. There are scattered fibroglandular densities. No suspicious abnormality. No significant changes when compared with prior studies. ASSESSMENT: Negative, BI-RAD 1 RECOMMENDATION: Routine screening mammogram of both breasts in 1 year.
--- NOTE | 2019-09-13 12:44 | BD ---
EXAMINATION TYPE: Axial Bone Density DATE OF EXAM: 09/10/2019 COMPARISON: 06.03.2012 CLINICAL HISTORY: 74 YR OLD FEMALE....ICD-10 CODE: M85.89 DISORDER OF BONE DEN STRUCTURE Height: 60 Weight: 190 FRAX RISK QUESTIONS: Glucocorticoids (More than 3mos): IN THE PAST VERY HEAVILY (Ex: prednisone, prednisolone, methylprednisolone, dexamethasone, and hydrocortisone). Rheumatoid Arthritis: YES RISK FACTORS HISTORY OF: Surgery to LT HIP...THR...5 YRS AGO Postmenopausal woman: YES, IN HER 50s Take estrogen and/or progesterone medications: IN THE PAST FOR ABOUT 2-3 YRS, NONE NOW Lost more than 2 inches in height since high school: YES Poor Health: ELDERLY Hyperparathyroidism: NO Adrenal Insufficiency: NO MEDICATIONS: Prednisone or other steroids: IN THE PAST FOR A LONG TIME NOT NOW, FOR RA Additional Medications: BP MEDS, REFLUX MED, STATIN FOR CHOLESTEROL, VIT D Additional History: HYPERTENSION, REFLUX CHOLESTEROL EXAM MEASUREMENTS: Bone mineral densitometry was performed using the [email or web address] System. Bone mineral density as measured about the Lumbar spine is: ----- L1-L4(G/cm2): 1.233 T Score Values are as follows: ----- L1: 0.9 ----- L2: 0.2 ----- L3: 1.1 ----- L4: -0.3 ----- L1-L4: 0.4 Bone mineral density has: Increased 3.9% since study of: 06.03.2012 Bone mineral density about the L hip (g/cm2): 0.803 T Score values are as follows: -----L Neck: -1.6 -----L Total: -1.6 Bone mineral density has: Decreased -1.0% since study of: 06.03.2012 FRAX%s: THERE IS A 21.9% CHANCE FOR A MAJOR OSTEOPOROTIC FX AND A 5.9% FOR HIP.....PROBABILITY FOR FX IN 10 YRS TIME IMPRESSION: Osteopenia (T Score between -2.5 and -1). There is slightly increased risk of fracture and the patient may be considered for treatment. Re-Screen 2-5 years. NOTE: T-SCORE=SD OF THE YOUNG ADULT MEAN.
== END | disposition home or self-care (01) ==
LOC: RADMAMWWP 08:02
PROVIDERS: ATTEND Family Medicine
DX: Z12.31 Encounter for screening mammogram for malignant neoplasm of breast (principal); M85.80 Other specified disorders of bone density and structure, unspecified site; E55.9 Vitamin D deficiency, unspecified
CPT/HCPCS: 77063; 77067; 77080